=== PATIENT | male | born 1980 | race Caucasian/White ===

== ENCOUNTER 2025-02-04 11:54 | Emergency (ER) | payer OTHER, SELFPAY ==
[2025-02-04 12:02] VITALS: BP 132/81
[2025-02-04 12:22] LABS: Hematocrit 44.5 % (39.0-52.0); Hemoglobin 15.2 g/dL (13.0-18.0); Mean Corp Hgb Conc. 34.2 g/dL (33.0-37.0); Mean Corpuscular Volume 82.7 fL (80.0-94.0); Nucleated Red Blood Cells % 0 % (-); Platelet Count 229 10^3/uL (130-400); Red Cell Dist. Width 13.3 % (11.5-14.5)
[2025-02-04 12:48] LABS: ALT (SGPT) 31 U/L (0-50); AST (SGOT) 21 U/L (17-59); Albumin 4.8 g/dl (3.5-5.0); Alkaline Phosphatase 36 U/L (38-126); Blood Urea Nitrogen 16 mg/dl (9-20); Calcium 9.7 mg/dl (8.4-10.2); Carbon Dioxide 24 mmol/L (22-30); Chloride 108 mmol/L (98-107); Glucose 112 mg/dl (70-99); Potassium 4.5 mmol/L (3.5-5.1); Sodium 139 mmol/L (135-145); Total Protein 7.3 g/dl (6.3-8.2); eGFR > 60.00
[2025-02-04 12:59] LABS: Troponin I < 0.012 ng/ml
[2025-02-04 15:15] VITALS: BP 131/72
--- NOTE | 2025-02-04 15:41 | ED.GENMED ---
History of Present Illness
General
Chief Complaint: Chest Pain
Source: patient
Exam Limitations: none
Time Seen by Provider: 02/04/25 15:06
Nursing documentation reviewed up to this point in time: agreed with
History of Present Illness
History of Present Illness:
Patient is a healthy 44-year-old male who presents to the emergency department for evaluation of chest pain which occurred this morning. Patient states that while he was lying in bed after waking this morning around 6:30 AM he had a sharp, spasm
like pain in his left chest. It only lasted a few seconds and then resolved. He then states that it returned once more about a minute later, again only lasting a few seconds.
He has been asymptomatic since.
He denies any radiation of pain into his left arm/shoulder, back, or jaw.
He denies any associated shortness of breath, severe back pain, lightheadedness, dizziness, diaphoresis, nausea.
He states that he has been feeling well overall without any recent exertional dyspnea or fatigue.
Patient has no personal history of coronary artery disease.
Review of Systems
Review of Systems
Allergies reviewed?: Yes
All Other Systems: ROS reviewed and negative except as documented in HPI and ROS
Phy Exam
Physical Exam
Physical Exam:
Vitals: Mildly hypertensive, otherwise vital signs stable. Afebrile
General: Patient is very well appearing, no acute distress. Nontoxic in
Skin: Warm and dry, no rashes or lesions
Head: Normocephalic, atraumatic
Eyes: Sclera nonicteric. EOMs intact. No nystagmus.
Throat: Protecting airway
Neck: Normal ROM, no cervical spine tenderness, no meningismus. No JVD
Cardiac: Regular rate and rhythm, no murmurs. No reproducible chest wall tenderness
Pulm: Normal respiratory effort, no wheezes, rales, rhonchi heard on exam
Abdomen: No abdominal tenderness.
Extremities: No evidence of cyanosis or edema. 2+ palpable DP pulses bilateral
Neuro: AAOx3. Grossly intact.
Psychiatric: Normal affect.
Scores
Heart Score for Chest Pain Patients
STEMI patient?: No
History: Slightly or Non-Suspicious
ECG: Normal
Age: </= 45 years
Risk Factors: No Risk Factors
Troponin: </= Normal Limit
Heart Score for Chest Pain Patients: 0
Heart Score Risk: 2.5% MACE over next 6 weeks
PERC Rule Criteria
Age <50 years: Yes
HR <100 bpm: Yes
Room air oxygen sat >94%: Yes
History of DVT or PE: No
Recent trauma or surgery: No
Hemoptysis: No
Exogenous estrogen: No
Clinical signs suggestive of DVT: No
: No
Considered low risk for PE: Yes
PERC Score: 0
PE can be excluded by PERC: Yes
Course
Orders/Labs/Results
Orders:
Orders
02/04/25 11:56
Electrocardiogram (*1) Urgent
Reason for Study: Chest Pain
EKG- Treatment ONCE
02/04/25 12:13
Complete Blood Count/With Diff Urgent
Comprehensive Metabolic Panel Urgent
Troponin I Urgent
02/04/25 15:31
Chest [CR Chest - 2 Views ] Urgent
Comment:
Reason For Exam: chest pain
02/04/25 15:34
Troponin I Urgent
02/04/25 15:46
Electrocardiogram (*1) Urgent
Reason for Study: Chest Pain
02/04/25 15:47
EKG- Treatment ONCE
Abnormal Lab Results
02/04/25
12:13
MPV 10.8 H fL
(7.4-10.4)
Chloride 108 H mmol/L
(98-107)
Glucose 112 H mg/dl
(70-99)
Alkaline Phosphatase 36 L U/L
(38-126)
02/04/25 12:13
02/04/25 12:13
Vital Signs
Initial and Last Documented VS:
Initial Vital Signs
Temp Pulse Resp BP Pulse Ox
98.1 F 65 20 132/81 99
02/04/25 12:02 02/04/25 12:02 02/04/25 12:02 02/04/25 12:02 02/04/25 12:02
Last Documented Vital Signs
Temp Pulse Resp BP Pulse Ox
98.1 F 77 18 131/72 98
02/04/25 12:02 02/04/25 15:15 02/04/25 15:15 02/04/25 15:15 02/04/25 15:43
MDM/Problems Addressed
Differential Diagnosis Includes:
Not limited to: Muscle strain/spasm, GERD, acute coronary syndrome, pericarditis, myocarditis, etc.
MDM/Problems Addressed:
44-year-old male with atypical chest pain which has resolved. No exertional or pleuritic component. No infectious symptoms. 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
Vitals stable. Exam as above.
By my assessment � basic labs were sent without any clinically significant abnormalities. EKG reveals normal sinus rhythm without any acute ischemic changes. Initial troponin undetectable.
Symptoms very atypical in nature and do not seem like an anginal equivalent. However � will trend troponin, repeat EKG and obtain chest x-ray. Patient completely symptomatic.
Update: EKG remains unchanged. Repeat troponin undetectable. Chest x-ray without acute findings.
At this point � very low suspicion for acute coronary syndrome given negative serial roponins and normal EKG. Patient PERC negative � do not suspect pulmonary embolism. Unknown exact etiology although possibly musculoskeletal in nature.
Very low suspicion for acute emergent process. Feel stable for discharge home with primary care/cardiology follow-up. Strict return precautions discussed.
Chronic conditions affecting care:
N/A
Acute Exacerbation and/or Progression of Chronic Illness:
N/A
*Radiology
Radiology exam reviewed: preliminary read by ED provider (Chest x-ray reviewed by me-no acute abnormality) and radiology read reviewed
*Pulse Oximetry
SaO2: 98
Oxygen Mode of Delivery: Room air
Patient hypoxic: no
*EKG
Interpreted by ED Provider?: Yes
EKG Intrepretation Date: 02/04/25
Interpretation: normal
Comparison EKG: no comparison EKG present
Heart Rate: 60
Rate: normal
Rhythm: sinus
[place]: normal axis
Interval: normal QT interval
QRS Pattern: normal QRS
Ischemia: no ischemia
*Dot Etcher Apprentice Interpretation
Rate: normal
Interpretation: normal
Heart Rate: 66
Rhythm: sinus
*Critical Care Note
Total Time (30-74mins, 75-104mins- exclusive of procedures): Not Applicable
ED Attending Note
-
Portions of this chart may have been created with voice recognition software.� Occasional wrong word or��sound alike� substitutions may have occurred due to the inherent limitations of voice recognition software.
Discharge Plan
Departure
Patient Disposition: Home (Routine Discharge)
Date of Disposition: 02/04/25
Time of Disposition: 16:25
Patient with high blood pressure during this ER visit?: Yes
Discharge Problem:
Chest pain
Instructions: Chest pain, BLOOD PRESSURE
Referrals:
Scooby Velazquez MD [Active, Cardiology]
Yimi Bernal PA-C [Family Provider]
Activity Restrictions/Additional Instructions:
RETURN TO THE EMERGENCY DEPARTMENT WITH ANY CHEST PAIN, SHORTNESS OF BREATH, LIGHTHEADEDNESS, SEVERE BACK PAIN, EXERTIONAL FATIGUE, WORSENING IN CURRENT SYMPTOMS, OR ANY OTHER CONCERNS
- As discussed�your lab work and cardiac enzymes showed no acute abnormalities today in the emergency department. Your chest x-ray is normal
- It is important stay well-hydrated. You can take Tylenol and/or Motrin for any discomfort
- Follow-up with primary care and cardiology for further evaluation/management to ensure their symptoms are improving.
Monitor your symptoms closely and return to the emergency department with any acute worsening/new symptoms or any other concerns
Interventions
Interventions:
*Risk Screen - Suicide Last Done: 02/04/25 12:02
*General Assessment Last Done: 02/04/25 12:02
*Neglect/Abuse Screening Last Done: 02/04/25 12:02
*Nursing Disposition Last Done: 02/04/25 16:31
ED- Cardiac Assessment Last Done: 02/04/25 15:11
Discharge Date and Time
Discharge Date/Time: 02/04/25 16:32
Print Language: FINNISH
[2025-02-04 16:05] LABS: Troponin I < 0.012 ng/ml
== END 2025-02-04 16:32 | disposition home or self-care (01) ==
LOC: EMR 11:54
PROVIDERS: Emergency Medicine; Physician Assistant; EMERGENCY PHYSICIAN Emergency Medicine; FAMILY PHYSICIAN Physician Assistant Medical
DX: R07.89 Other chest pain (principal); R03.0 Elevated blood-pressure reading, without diagnosis of hypertension
CPT/HCPCS: 99285; 71046; 80053; 84484; 85025; 93005